=== PATIENT | female | born 1930 | race Caucasian/White ===

== ENCOUNTER → 2016-12-15 | Outpatient (CLI) | payer OTHER, MEDICARE | LOC: HYPER 07:04 | DX: I87.333 Chronic venous hypertension (idiopathic) with ulcer and inflammation of bilateral lower extremity (principal); L97.811 Non-pressure chronic ulcer of other part of right lower leg limited to breakdown of skin; L97.821 Non-pressure chronic ulcer of other part of left lower leg limited to breakdown of skin; L97.424 Non-pressure chronic ulcer of left heel and midfoot with necrosis of bone; L97.521 Non-pressure chronic ulcer of other part of left foot limited to breakdown of skin; L84 Corns and callosities; I73.9 Peripheral vascular disease, unspecified; M76.71 Peroneal tendinitis, right leg; M79.676 Pain in unspecified toe(s); R21 Rash and other nonspecific skin eruption; I48.91 Unspecified atrial fibrillation; K21.9 Gastro-esophageal reflux disease without esophagitis; Z90.710 Acquired absence of both cervix and uterus; Z72.89 Other problems related to lifestyle ==

== ENCOUNTER → 2017-01-04 | Outpatient (CLI) | payer OTHER, MEDICARE | LOC: HYPER 06:58 | DX: I87.333 Chronic venous hypertension (idiopathic) with ulcer and inflammation of bilateral lower extremity (principal); L97.424 Non-pressure chronic ulcer of left heel and midfoot with necrosis of bone; L97.521 Non-pressure chronic ulcer of other part of left foot limited to breakdown of skin; L97.811 Non-pressure chronic ulcer of other part of right lower leg limited to breakdown of skin; I73.9 Peripheral vascular disease, unspecified; L84 Corns and callosities; M76.71 Peroneal tendinitis, right leg; M79.676 Pain in unspecified toe(s); I48.91 Unspecified atrial fibrillation; H40.9 Unspecified glaucoma; Z90.710 Acquired absence of both cervix and uterus; Z98.49 Cataract extraction status, unspecified eye; Z72.89 Other problems related to lifestyle ==

== ENCOUNTER → 2017-01-25 | Outpatient (CLI) | payer OTHER, MEDICARE | LOC: HYPER 07:12 | DX: I87.333 Chronic venous hypertension (idiopathic) with ulcer and inflammation of bilateral lower extremity (principal); L97.424 Non-pressure chronic ulcer of left heel and midfoot with necrosis of bone; L97.521 Non-pressure chronic ulcer of other part of left foot limited to breakdown of skin; L97.811 Non-pressure chronic ulcer of other part of right lower leg limited to breakdown of skin; L84 Corns and callosities; I73.9 Peripheral vascular disease, unspecified; M76.71 Peroneal tendinitis, right leg; I48.91 Unspecified atrial fibrillation; H40.9 Unspecified glaucoma; Z90.710 Acquired absence of both cervix and uterus; Z98.49 Cataract extraction status, unspecified eye; Z72.89 Other problems related to lifestyle ==

== ENCOUNTER → 2017-02-24 | Outpatient (CLI) | payer OTHER, MEDICARE | LOC: HYPER 02-08 08:14 | DX: I87.331 Chronic venous hypertension (idiopathic) with ulcer and inflammation of right lower extremity (principal); L97.811 Non-pressure chronic ulcer of other part of right lower leg limited to breakdown of skin; L84 Corns and callosities; I73.9 Peripheral vascular disease, unspecified; M76.71 Peroneal tendinitis, right leg; I48.91 Unspecified atrial fibrillation; H40.9 Unspecified glaucoma; Z90.710 Acquired absence of both cervix and uterus; Z98.49 Cataract extraction status, unspecified eye; Z72.89 Other problems related to lifestyle ==

== ENCOUNTER → 2017-05-12 | Outpatient (CLI) | payer OTHER, MEDICARE | LOC: HYPER 04-04 11:27 | DX: I87.331 Chronic venous hypertension (idiopathic) with ulcer and inflammation of right lower extremity (principal); L97.811 Non-pressure chronic ulcer of other part of right lower leg limited to breakdown of skin; L84 Corns and callosities; I73.9 Peripheral vascular disease, unspecified; M76.71 Peroneal tendinitis, right leg; I48.91 Unspecified atrial fibrillation; H40.9 Unspecified glaucoma; Z90.710 Acquired absence of both cervix and uterus; Z90.49 Acquired absence of other specified parts of digestive tract; Z98.49 Cataract extraction status, unspecified eye; Z72.89 Other problems related to lifestyle ==

== ENCOUNTER → 2017-06-06 | Outpatient (CLI) | payer OTHER, MEDICARE | LOC: HYPER 07:14 | DX: I87.331 Chronic venous hypertension (idiopathic) with ulcer and inflammation of right lower extremity (principal); L97.811 Non-pressure chronic ulcer of other part of right lower leg limited to breakdown of skin; I73.9 Peripheral vascular disease, unspecified; I48.91 Unspecified atrial fibrillation; L84 Corns and callosities; M79.676 Pain in unspecified toe(s); Z72.89 Other problems related to lifestyle; Z90.710 Acquired absence of both cervix and uterus ==

== ENCOUNTER → 2018-03-03 | Outpatient (CLI) | payer OTHER, MEDICARE | LOC: HYPER 07:55 | DX: I87.332 Chronic venous hypertension (idiopathic) with ulcer and inflammation of left lower extremity (principal); L97.821 Non-pressure chronic ulcer of other part of left lower leg limited to breakdown of skin; L84 Corns and callosities; R21 Rash and other nonspecific skin eruption; E07.89 Other specified disorders of thyroid; I48.91 Unspecified atrial fibrillation; I73.9 Peripheral vascular disease, unspecified; R60.0 Localized edema; K21.9 Gastro-esophageal reflux disease without esophagitis ==

== ENCOUNTER → 2018-03-17 | Outpatient (CLI) | payer OTHER, MEDICARE | LOC: HYPER 07:54 | DX: I87.333 Chronic venous hypertension (idiopathic) with ulcer and inflammation of bilateral lower extremity (principal); L97.821 Non-pressure chronic ulcer of other part of left lower leg limited to breakdown of skin; L97.811 Non-pressure chronic ulcer of other part of right lower leg limited to breakdown of skin; L84 Corns and callosities; E07.89 Other specified disorders of thyroid; I73.9 Peripheral vascular disease, unspecified; I48.91 Unspecified atrial fibrillation; M76.71 Peroneal tendinitis, right leg ==

== ENCOUNTER → 2018-03-31 | Outpatient (CLI) | payer OTHER, MEDICARE | LOC: HYPER 08:54 | DX: I87.333 Chronic venous hypertension (idiopathic) with ulcer and inflammation of bilateral lower extremity (principal); L97.821 Non-pressure chronic ulcer of other part of left lower leg limited to breakdown of skin; L97.811 Non-pressure chronic ulcer of other part of right lower leg limited to breakdown of skin; L84 Corns and callosities; I73.9 Peripheral vascular disease, unspecified; I48.91 Unspecified atrial fibrillation; E07.89 Other specified disorders of thyroid; K21.9 Gastro-esophageal reflux disease without esophagitis; M76.71 Peroneal tendinitis, right leg; R21 Rash and other nonspecific skin eruption ==